=== PATIENT | female | born 1985 | race African-American/Black ===

== ENCOUNTER 2019-06-21 19:22 | Emergency (ER) | payer MEDICAID ==
[~2019-06-21] VITALS: Ht 180.3 cm; Wt 72.1 kg
[2019-06-21] MEDS ORDERED: ESCI20TA PO (19:34)
[2019-06-21 20:16] LABS: *URINE HCG, QUAL NEGATIVE (NEGATIVE)
--- NOTE | 2019-06-21 21:00 | NUR ---
Patient in room interacting with friend with no distress noted.
--- NOTE | 2019-06-21 21:47 | NUR ---
Patient discharged to home in stable conditon with friend taking patient home. Written and verbal after care instructions given. Patient verbalizes understanding of instructions. Walked out of ER with no distress noted.
[2019-06-21 21:48] VITALS: BP 115/89
== END 2019-06-21 21:49 | disposition home or self-care (01) ==
LOC: ER 19:25
DX: S00.03XA Contusion of scalp, initial encounter (principal); T71.9XXA Asphyxiation due to unspecified cause, initial encounter; T74.61XA Adult forced labor exploitation, confirmed, initial encounter; F41.9 Anxiety disorder, unspecified; Z88.5 Allergy status to narcotic agent; Z88.8 Allergy status to other drugs, medicaments and biological substances; Z79.899 Other long term (current) drug therapy; Y04.2XXA Assault by strike against or bumped into by another person, initial encounter; Y93.89 Activity, other specified; Y92.89 Other specified places as the place of occurrence of the external cause; Y99.8 Other external cause status
CPT/HCPCS: 70490; 71045; 84703; A4663

== ENCOUNTER 2019-06-25 21:23 | Emergency (ER) | payer MEDICAID ==
[~2019-06-25] VITALS: Ht 180.3 cm; Wt 70.8 kg
[~2019-06-25 21:23] MED LIST: ESCI20TA PO
[2019-06-25] MEDS ORDERED: KETOROLAC TROMETHAMINE 60 MG INJ IM ONE ×2 (22:13→22:15)
[2019-06-25] MEDS ORDERED: METOCLOPRAMIDE HCL 10 MG/2 ML VIAL ONE (22:13)
[2019-06-25] MEDS ORDERED: METOCLOPRAMIDE HCL 10 MG/2 ML VIAL IM ONE (22:15)
[2019-06-25] MEDS ORDERED: IBUPROFEN 600 MG TABLET ONE (22:30)
[2019-06-25] MEDS ORDERED: IBUPROFEN 600 MG TABLET PO ONE (22:30)
[2019-06-25] MEDS ORDERED: ONDANSETRON HCL 4 MG TABLET ONE (22:30)
[2019-06-25] MEDS ORDERED: ONDANSETRON ODT 4 MG TAB.RAPDIS SL ONE (22:30)
--- NOTE | 2019-06-25 23:30 | NUR ---
PT ABLE TO TOLERATE PO MEDS ORDERED CURRENTLY DENIES PAIN RA NAD
--- NOTE | 2019-06-25 23:54 | NUR ---
Patient discharged to home in stable conditon. Written and verbal after care instructions given. Patient verbalizes understanding of instructions. AMBULATORY W/ STABLE GAIT ALL BELONGINGS W/ PT
[2019-06-25 23:55] VITALS: BP 112/72
== END 2019-06-25 23:56 | disposition home or self-care (01) ==
LOC: ER 21:24
DX: S09.90XA Unspecified injury of head, initial encounter (principal); F41.9 Anxiety disorder, unspecified; F12.10 Cannabis abuse, uncomplicated; Z88.5 Allergy status to narcotic agent; Z88.8 Allergy status to other drugs, medicaments and biological substances; Z79.899 Other long term (current) drug therapy; Y04.2XXA Assault by strike against or bumped into by another person, initial encounter; Y93.89 Activity, other specified; Y92.89 Other specified places as the place of occurrence of the external cause; Y99.8 Other external cause status
CPT/HCPCS: 70450; 99284; J1885; J2765; A4663; Q0162

== ENCOUNTER 2019-12-13 02:07 | Emergency (ER) | payer MEDICAID ==
[~2019-12-13] VITALS: Ht 180.3 cm; Wt 75.3 kg
[2019-12-13] MEDS ORDERED: SUMA100T PO (02:18)
[2019-12-13] MEDS ORDERED: DEXAMETHASONE SOD PHOSPHATE 4 MG INJ IV ONE (02:45)
[2019-12-13] MEDS ORDERED: KETOROLAC TROMETHAMINE 30 MG INJ IVP ONE (02:45)
[2019-12-13] MEDS ORDERED: IV NS 1000 ML 1,000 ML IV ONE (02:45)
[2019-12-13] MEDS ORDERED: METOCLOPRAMIDE HCL 10 MG/2 ML VIAL IV ONE (02:45)
[2019-12-13] MEDS ORDERED: diphenhydrAMINE 50 MG/1 ML VIAL IV ONE (02:45)
--- NOTE | 2019-12-13 02:45 | NUR ---
Dr Langston at bedside for MSE.
[2019-12-13] MEDS ORDERED: METOCLOPRAMIDE HCL 10 MG/2 ML VIAL ONE (02:56)
[2019-12-13] MEDS ORDERED: DEXAMETHASONE SOD PHOSPHATE 10 MG INJ ONE (02:56)
[2019-12-13] MEDS ORDERED: KETOROLAC TROMETHAMINE 30 MG INJ ONE (02:56)
[2019-12-13] MEDS ORDERED: diphenhydrAMINE 50 MG/1 ML VIAL ONE (02:56)
--- NOTE | 2019-12-13 04:07 | NUR ---
Patient discharged to home in stable condition. Written and verbal after care instructions given. Patient verbalizes understanding of instructions. Stressed follow up with Neurology per MD's referral or return to ER for worsening s/s. IV removed. Catheter intact and site benign. Pressure and 4x4 gauze applied to site. No active bleeding noted. Pt ambulated out of ER in steady gait and stable condition.
[2019-12-13 04:12] VITALS: BP 105/59
== END 2019-12-13 04:12 | disposition home or self-care (01) ==
LOC: ER 02:11
DX: R51 Headache (principal); Z82.0 Family history of epilepsy and other diseases of the nervous system; R11.2 Nausea with vomiting, unspecified
CPT/HCPCS: 96361; 96374; 96375; 99284; J1100; J1200; J1885; J2765; A4663; J7030